=== PATIENT | male | born 1995 | race Caucasian/White ===

== ENCOUNTER 2020-07-18 14:13 | Emergency (ER) | payer SELFPAY ==
[~2020-07-18] VITALS: Ht 180.3 cm; Wt 61.3 kg
[~2020-07-18 14:13] MED LIST: CODE-54 PO; MUPI15CR TP; SULF1TAB35 PO
[2020-07-18] MEDS ORDERED: KETOROLAC 30 MG/ML VIAL IVP ONE (14:30)
[2020-07-18] MEDS ORDERED: NS IV 1000 ML 1,000 ML IV SCH (14:30)
--- NOTE | 2020-07-18 14:33 | ED EENT ---
History of Present Illness General Stated Complaint: SORE THROAT/JAW AREA Source: patient Exam Limitations: no limitations History of Present Illness Date Seen by Provider: July 18, 2020 Time Seen by Provider: 14:31 Initial Comments To ER by private vehicle with reports of left-sided jaw and throat swelling. This was first noticed on 07/14/2020. He saw [facility] this morning and received an injection of steroid and antibiotic. Since that injection he feels as though the swelling has progressed and he was advised to come to the emergency room to evaluate for abscess. He was also given a prescription at [facility] for Augmentin. Timing/Duration: abrupt Severity: moderate Associated Symptoms: denies symptoms Allergies and Home Medications Allergies Coded Allergies: No Known Drug Allergies (Unverified , 08/04/11) Home Medications Hydrocodone/Acetaminophen 118 Ml Solution, 10 ML PO Q4H PRN for PAIN-SEVERE (8- 10) Prescribed by: DOLLY BARRETO on 07/18/20 1534 Mupirocin Calcium 15 Gm Cream..g., 15 GM TP BID Prescribed by: ROSA STEWART on 08/24/17 232 Prednisone 20 Mg Tab, 40 MG PO DAILY Prescribed by: DOLLY BARRETO on 07/18/20 1537 Sulfamethoxazole/Trimethoprim 1 Each Tablet, 1 EACH PO BID Prescribed by: ROSA STEWART on 08/24/172319 Patient Home Medication List Home Medication List Reviewed: Yes Review of Systems Review of Systems Constitutional: see HPI; No chills, No fever Eyes: No Symptoms Reported Ears: No Symptoms Reported Nose: no symptoms reported Mouth: no symptoms reported Respiratory: no symptoms reported Cardiovascular: no symptoms reported Musculoskeletal: no symptoms reported Past Bcfnnkr-Lzlkuc-Xibzph Hx Patient Social History Type Used: Cigarettes 2nd Hand Smoke Exposure: Yes Past Medical History Surgeries: No Respiratory: No Cardiac: No Neurological: No Genitourinary: No Gastrointestinal: No Musculoskeletal: No Endocrine: No HEENT: No Cancer: No Psychosocial: No Integumentary: Yes (ACNE) Psoriasis Blood Disorders: No Physical Exam Vital Signs Vital Signs - First Documented 07/18/20 14:40 Temp 37.2 Pulse 82 Resp 18 B/P (MAP) 146/104 (118) Pulse Ox 98 Height, Weight, BMI Height: 5'11.00" Weight: 140lbs. oz. 63.699078xm; BMI Method:Stated General Appearance: WD/WN, no apparent distress Eyes: bilateral eye normal inspection, bilateral eye PERRL, bilateral eye EOMI Ears: bilateral ear auricle normal, bilateral ear canal normal, bilateral ear TM normal Mouth/Throat: other (There is left peritonsillar swelling including swelling of the left soft palate. There is erythema of the overlying skin. There is no uvular deviation to the right.) Neck: non-tender, full range of motion, lymphadenopathy (L) Cardiovascular: tachycardia Gastrointestinal: normal bowel sounds, non tender Neurologic/Psychiatric: alert, normal mood/affect, oriented x 3 Skin: normal color, warm/dry Progress/Results/Core Measures Results/Orders Lab Results Laboratory Tests Test 07/18/20 14:20 Range/Units White Blood Count 12.5 H 4.3-11.0 10^3/uL Red Blood Count 4.79 4.30-5.52 10^6/uL Hemoglobin 14.3 13.3-17.7 g/dL Hematocrit 41 40-54 % Mean Corpuscular Volume 86 80-99 fL Mean Corpuscular Hemoglobin 30 25-34 pg Mean Corpuscular Hemoglobin Concent 35 32-36 g/dL Red Cell Distribution Width 12.3 10.0-14.5 % Platelet Count 259 130-400 10^3/uL Mean Platelet Volume 10.1 9.0-12.2 fL Immature Granulocyte % (Auto) 0 % Neutrophils (%) (Auto) 70 42-75 % Lymphocytes (%) (Auto) 18 12-44 % Monocytes (%) (Auto) 11 0-12 % Eosinophils (%) (Auto) 1 0-10 % Basophils (%) (Auto) 0 0-10 % Neutrophils # (Auto) 8.7 H 1.8-7.8 10^3/uL Lymphocytes # (Auto) 2.3 1.0-4.0 10^3/uL Monocytes # (Auto) 1.4 H 0.0-1.0 10^3/uL Eosinophils # (Auto) 0.1 0.0-0.3 10^3/uL Basophils # (Auto) 0.0 0.0-0.1 10^3/uL Immature Granulocyte # (Auto) 0.0 0.0-0.1 10^3/uL C-Reactive Protein High Sensitivity 9.69 H 0.00-0.50 MG/DL My Orders Orders - DOLLY BARRETO BANDING MACHINE OPERATOR Ct Neck (Soft Tissue) W (07/18/20 14:30) Cbc With Automated Diff (07/18/20 14:30) Hs C Reactive Protein (07/18/20 14:30) Ed Iv/Invasive Line Start (07/18/20 14:30) Ketorolac Injection (Toradol Injection) (07/18/20 14:30) Ns Iv 1000 Ml (Sodium Chloride 0.9%) (07/18/20 14:30) Iohexol Injection (Omnipaque 350 Mg/Ml 1 (07/18/20 14:45) Received Contrast (Hold Metformin- Contr (07/18/20 14:45) Sodium Chloride Flush (Catheter Flush Sy (07/18/20 14:45) Ns (Ivpb) (Sodium Chloride 0.9% Ivpb Bag (07/18/20 14:45) Clindamycin 900 Mg/50 Ml Ivpb (Cleocin P (07/18/20 14:45) Lidocaine/Epi 2% 1:100,000 (Xylocaine/Ep (07/18/20 15:00) Lorazepam Injection (Ativan Injection) (07/18/20 15:00) Hydrocodone/Apap 5/325 Tablet (Lortab 5 (07/18/20 15:45) Medications Given in ED Current Medications Medications Dose Ordered Sig/Christiano Route Start Time Stop Time Status Last Admin Dose Admin Clindamycin Phosphate/Dextrose 50 ml @ 100 mls/hr ONCE ONCE IV 07/18/20 14:45 07/18/20 15:14 DC 07/18/20 15:04 100 MLS/HR Iohexol 75 ml ONCE ONCE IV 07/18/20 14:45 07/18/20 14:46 DC 07/18/20 14:52 75 ML Ketorolac Tromethamine 15 mg ONCE ONCE IVP 07/18/20 14:30 07/18/20 14:31 DC 07/18/20 14:39 15 MG Lidocaine/ Epinephrine 20 ml ONCE ONCE INJ 07/18/20 15:00 07/18/20 15:01 DC 07/18/20 15:34 20 ML Lorazepam 0.5 mg ONCE PRN IVP 07/18/20 15:00 07/18/20 14:57 0.5 MG Sodium Chloride 100 ml ONCE ONCE IV 07/18/20 14:45 07/18/20 14:46 DC 07/18/20 14:52 80 ML Vital Signs/I&O 07/18/20 14:40 Temp 37.2 Pulse 82 Resp 18 B/P (MAP) 146/104 (118) Pulse Ox 98 Departure Communication (Admissions) Did needle aspiration of peritonsillar abscess. On the left side the soft palate was anesthetized with 1 mL of 2% lidocaine with epinephrine. This was utilizing a 27-gauge needle. Then with him sitting upright an 18-gauge 1/2 inch needle was inserted to a depth of 1.5 cm where it was guarded with the needle. Needle was oriented parallel to the floor and posterolaterally. Aspirated 4 mL of purulent material. Minimal bleeding. NAME: CHRISTINA GARCIA MED REC#: [id number] PT STATUS: REG ER : 1995 PHYSICIAN: DOLLY BARRETO BANDING MACHINE OPERATOR ADMIT DATE: 07/18/20/ER Draft Date of Exam:07/18/20 CT NECK (SOFT TISSUE) W EXAMINATION: CT neck with intravenous contrast. TECHNIQUE: Multiple contiguous axial images were obtained through the neck after the uneventful administration of intravenous contrast. All CT scans use one or more of the following dose optimizing techniques: automated exposure control, MA and/or KvP adjustment based on patient size and exam type or iterative reconstruction. HISTORY: left peritonsillar abscess COMPARISON: None available. FINDINGS: There is a 1.7 x 1.2 cm fluid collection within the left peritonsillar soft tissues with significant surrounding edema. There is mass effect on the airway without significant narrowing. The parotid and submandibular glands are normal. There is significant streak artifact seen secondary to dental hardware. No pathologically enlarged lymph nodes are seen. Skull base is unremarkable. No suspicious osseous lesion or compression fracture. Visualized lung apices are unremarkable. IMPRESSION: 1. Left peritonsillar fluid collection measuring 1.7 x 1.2 cm with mild mass effect on the airway. Findings compatible with developing peritonsillar abscess. Dictated on workstation # [id number] Dict: 07/18/20 1451 Trans: 07/18/20 1457 [id number] Interpreted by: LANDY,YRN C DO Electronically signed by: Impression Primary Impression: Peritonsillar abscess Disposition: 01 HOME, SELF-CARE Condition: Stable Departure-Patient Inst. Decision time for Depature: 14:33 Referrals: ANGELINE LAKHANI MD NO,LOCAL PHYSICIAN (PCP) Primary Care Physician Patient Instructions: Peritonsillar Abscess, Adult Add. Discharge Instructions: 1. Continue pain medication antibiotic and steroids as directed. Sip on ice cold fluids. This will help with swelling and pain. Return to ER about this time tomorrow afternoon for recheck. Scripts Prednisone (Prednisone) 20 Mg Tab 40 MG PO DAILY, #6 TAB 0 Refills Prov: DOLLY BARRETO APRN 07/18/20 Hydrocodone/Acetaminophen (Hydrocodone-Acetamn 7.5-325/15) 118 Ml Solution 10 ML PO Q4H PRN for PAIN-SEVERE (8-10), #120 ML Prov: DOLLY BARRETO APRN 07/18/20 Work/School Note: Work Release Form Date Seen in the Emergency Department: July 18, 2020 Return to Work: July 21, 2020 DOLLY BARRETO APRN July 18, 2020 14:33
[2020-07-18 14:37] LABS: BASOPHILS % (AUTO) 0 % (0-10); EOSINOPHILS # (AUTO) 0.1 10^3/uL (0.0-0.3); EOSINOPHILS % (AUTO) 1 % (0-10); HEMATOCRIT 41 % (40-54); HEMOGLOBIN 14.3 g/dL (13.3-17.7); LYMPHOCYTES # (AUTO) 2.3 10^3/uL (1.0-4.0); LYMPHOCYTES % (AUTO) 18 % (12-44); MEAN CORPUSCULAR HEMOGLOBIN 30 pg (25-34); MEAN CORPUSCULAR HGB CONC 35 g/dL (32-36); MEAN CORPUSCULAR VOLUME 86 fL (80-99); MEAN PLATELET VOLUME 10.1 fL (9.0-12.2); MONOCYTES # (AUTO) 1.4 10^3/uL (0.0-1.0); MONOCYTES % (AUTO) 11 % (0-12); NEUTROPHILS # (AUTO) 8.7 10^3/uL (1.8-7.8); NEUTROPHILS % (AUTO) 70 % (42-75); PLATELET COUNT 259 10^3/uL (130-400); WHITE BLOOD COUNT 12.5 10^3/uL (4.3-11.0)
[2020-07-18] MEDS ORDERED: CLINDAMYCIN 900 MG/50 ML IVPB 50 ML IV ONE (14:45)
[2020-07-18] MEDS ORDERED: IOHEXOL 350 MG/ML 100 ML (OMNIPAQUE 350) VIAL IV ONE (14:45)
[2020-07-18] MEDS ORDERED: NS 100 ML (IVPB) BAG IV ONE (14:45)
[2020-07-18] MEDS ORDERED: HOLD METFORMIN - RECEIVED CONTRAST 20 ML VIAL IV SCH (14:45)
[2020-07-18] MEDS ORDERED: CATHETER FLUSH 10 ML SYR IV PRN (14:45)
--- NOTE | 2020-07-18 14:57 | Diagnostic Imaging Report ---
EXAMINATION: CT neck with intravenous contrast. TECHNIQUE: Multiple contiguous axial images were obtained through the neck after the uneventful administration of intravenous contrast. All CT scans use one or more of the following dose optimizing techniques: automated exposure control, MA and/or KvP adjustment based on patient size and exam type or iterative reconstruction. HISTORY: left peritonsillar abscess COMPARISON: None available. FINDINGS: There is a 1.7 x 1.2 cm fluid collection within the left peritonsillar soft tissues with significant surrounding edema. There is mass effect on the airway without significant narrowing. The parotid and submandibular glands are normal. There is significant streak artifact seen secondary to dental hardware. No pathologically enlarged lymph nodes are seen. Skull base is unremarkable. No suspicious osseous lesion or compression fracture. Visualized lung apices are unremarkable. IMPRESSION: 1. Left peritonsillar fluid collection measuring 1.7 x 1.2 cm with mild mass effect on the airway. Findings compatible with developing peritonsillar abscess. Dictated by: Dictated on workstation # [id number]
[2020-07-18] MEDS ORDERED: LIDOCAINE/EPI 2% 1:100,00 (XYLOCAINE) 20 ML VIAL INJ ONE (15:00)
[2020-07-18] MEDS ORDERED: LORazepam INJ 2 MG/ML (ATIVAN) VIAL IVP PRN (15:00)
[2020-07-18] MEDS ORDERED: HYDR118S10 PO (15:33)
[2020-07-18] MEDS ORDERED: PRD20T PO (15:37)
[2020-07-18] MEDS ORDERED: HYDROcodone/APAP 5 MG/325 MG (LORTAB) TAB PO ONE (15:45)
[2020-07-18 15:50] VITALS: BP 118/81
== END 2020-07-18 15:50 | disposition home or self-care (01) ==
LOC: EDUNIT# 14:13 → ER 14:15
DX: J36 Peritonsillar abscess (principal); R00.0 Tachycardia, unspecified; Z77.22 Contact with and (suspected) exposure to environmental tobacco smoke (acute) (chronic)
CPT/HCPCS: 36415; 70491; 85025; 86141; 87070; 87075; 87205

== ENCOUNTER 2020-07-19 15:36 | Emergency (ER) | payer SELFPAY ==
[~2020-07-19] VITALS: Ht 180 cm; Wt 61.0 kg
[~2020-07-19 15:36] MED LIST changes: +HYDR118S10 PO; +PRD20T PO
[2020-07-19 15:55] VITALS: BP 143/80
--- NOTE | 2020-07-19 16:15 | ED Suture Removal/Wound Check ---
Suture/Wound Re-check Suture Removal/Wound Recheck : Progress I drained a left-sided peritonsillar abscess yesterday via needle aspiration. 4 mL of purulent material was aspirated. He already had a prescription for Augm entin from [facility]. I added hydrocodone and prednisone. He reports that today he was able to eat a burger and he is feeling much better though still somewhat swollen. General Appearance: WD/WN, no apparent distress Skin Exam: normal color, warm/dry Physical Exam Vital Signs Vital Signs - First Documented 07/19/20 15:55 Temp 36.2 Pulse 72 Resp 16 B/P (MAP) 143/80 Pulse Ox 96 O2 Delivery Room Air Capillary Refill : General Appearance: WD/WN, no apparent distress HEENT: other (He still has some erythema of the left side of the peritonsillar tissues. Significantly reduced swelling. No uvular deviation.) Neck: non-tender, full range of motion, lymphadenopathy (L) Cardiovascular: regular rate, rhythm, no murmur Respiratory: normal breath sounds, no respiratory distress, no accessory muscle use Neurologic/Psychiatric: alert, normal mood/affect, oriented x 3 Skin: normal color, warm/dry Departure Impression Primary Impression: Peritonsillar abscess Disposition: 01 HOME, SELF-CARE Condition: Stable Departure-Patient Inst. Decision time for Depature: 16:14 Referrals: NO,LOCAL PHYSICIAN (PCP/Family) Primary Care Physician Patient Instructions: Sore Throat in Adults Add. Discharge Instructions: 1. Continue the pain medication steroid and antibiotics. Return to ER for any worsening. All discharge instructions reviewed with patient and/or family. Voiced understanding. DOLLY BARRETO AUTO TECH July 19, 2020 16:15
== END 2020-07-19 16:17 | disposition home or self-care (01) ==
LOC: EDUNIT# 15:36 → ER 15:38
DX: Z48.01 Encounter for change or removal of surgical wound dressing (principal)

== ENCOUNTER 2021-08-22 19:20 | Emergency (ER) | payer SELFPAY ==
[~2021-08-22] VITALS: Ht 180.3 cm; Wt 65.8 kg
[~2021-08-22 19:20] MED LIST changes: -SULF1TAB35 PO; +SULF1TAB38 PO
[2021-08-22] MEDS ORDERED: NS IV 1000 ML 1,000 ML IV STA (19:51)
[2021-08-22] MEDS ORDERED: KETOROLAC 30 MG/ML VIAL IVP ONE (20:00)
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
[2021-08-22] MEDS ORDERED: KETOROLAC 60 MG/2 ML VIAL IM ONE (20:30)
[2021-08-22] MEDS ORDERED: KETOROLAC 30 MG/ML VIAL IM ONE (20:30)
--- NOTE | 2021-08-22 21:07 | Diagnostic Imaging Report ---
INDICATION: Shoulder pain. EXAMINATION: Right shoulder, 08/22/2021. COMPARISON: 12/18/2011. FINDINGS: There is no fracture or dislocation. The joint spaces are preserved. Soft tissues are unremarkable. A calcified granuloma in the right upper chest is stable from previous imaging. IMPRESSION: Chronic findings with no acute osseous abnormality. Dictated by: Dictated on workstation # [id number]
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
[2021-08-22] MEDS ORDERED: NAPR-915 PO (21:26)
[2021-08-22 21:29] VITALS: BP 119/78
== END 2021-08-22 21:39 | disposition home or self-care (01) ==
LOC: EDUNIT# 19:20 → ER 19:22
DX: S01.81XA Laceration without foreign body of other part of head, initial encounter (principal); S80.812A Abrasion, left lower leg, initial encounter; S30.810A Abrasion of lower back and pelvis, initial encounter; M25.511 Pain in right shoulder; M54.2 Cervicalgia; L40.9 Psoriasis, unspecified; F17.210 Nicotine dependence, cigarettes, uncomplicated; V49.40XA Driver injured in collision with unspecified motor vehicles in traffic accident, initial encounter; Y92.410 Unspecified street and highway as the place of occurrence of the external cause
CPT/HCPCS: 70450; 72125; 73030

== ENCOUNTER 2021-11-04 17:38 | Emergency (ER) | payer SELFPAY ==
[~2021-11-04] VITALS: Ht 180.3 cm; Wt 61.2 kg
[~2021-11-04 17:38] MED LIST changes: +NAPR-915 PO
[2021-11-04 18:41] LABS: BILIRUBIN,URINE NEGATIVE (NEGATIVE); CLARITY,URINE SL CLOUDY; COLOR,URINE YELLOW; GLUCOSE, URINE (UA) NEGATIVE (NEGATIVE); KETONES,URINE NEGATIVE (NEGATIVE); LEUKOCYTE ESTERASE ,URINE NEGATIVE (NEGATIVE); NITRITE,URINE NEGATIVE (NEGATIVE); PH,URINE 6.5 (5-9); PROTEIN,URINE NEGATIVE (NEGATIVE)
[2021-11-04 18:53] LABS: BACTERIA,URINE NEGATIVE /HPF; RBC,URINE 25-50 /HPF
--- NOTE | 2021-11-04 20:01 | ED Abdominal Pain ---
General Chief Complaint: Abdominal/GI Problems Stated Complaint: ABDOMINAL PAIN Nursing Triage Note: PT TO [facility] 5 WITH CC OF LOWER ABD AND BACK PAIN FOR A COUPLE OF MONTHS. PT REPORTS PAIN INCREASES WITH MOVING AND STATES HAS LOST 10-15LBS IN LAST MONTH. PT REPORTS NAUSEA. DENIES FEVER AND VOMITING. Source of Information: Patient Exam Limitations: No Limitations History of Present Illness Date Seen by Provider: Nov 04, 2021 Time Seen by Provider: 20:01 Allergies and Home Medications Allergies Coded Allergies: No Known Drug Allergies (Unverified , 08/04/11) Patient Home Medication List Hydrocodone/Acetaminophen (Hydrocodone-Acetamn 7.5-325/15) 118 Ml Solution, 10 ML PO Q4H PRN for PAIN-SEVERE (8-10) Prescribed by: DOLLY BARRETO on 07/18/20 153 Mupirocin Calcium (Bactroban) 15 Gm Cream..g., 15 GM TP BID Prescribed by: ROSA STEWART on 08/24/17 232 Naproxen (Naproxen) 500 Mg Tablet, 500 MG PO Q12H Prescribed by: CHARLOTTE GOMEZ on 08/22/212125 Prednisone (Prednisone) 20 Mg Tab, 40 MG PO DAILY Prescribed by: DOLLY BARRETO on 07/18/20 153 Sulfamethoxazole/Trimethoprim (Bactrim Ds Tablet) 1 Each Tablet, 1 EACH PO BID Prescribed by: ROSA STEWART on 08/24/17 232 Past Fuihmlj-Bdwakf-Xwxysh Hx Patient Social History Tobacco Use?: Yes Tobacco type used: Cigarettes Smoking Status: Current Everyday Smoker Substance use?: Yes Substance type: Marijuana Alcohol Use?: No Pt feels they are or have been: No Past Medical History Surgeries: No Respiratory: No Cardiac: No Neurological: No Genitourinary: No Gastrointestinal: No Musculoskeletal: No Endocrine: No HEENT: No Cancer: No Psychosocial: No Integumentary: Yes (ACNE) Psoriasis Blood Disorders: No Physical Exam Vital Signs Vital Signs - First Documented 11/04/21 18:21 Temp 37.2 Pulse 70 Resp 16 B/P (MAP) 151/92 (111) Pulse Ox 96 O2 Delivery Room Air Capillary Refill : Less Than 3 Seconds Height/Weight/BMI Height: 5'11.00" Weight: 140lbs. oz. [id number]; 18.00 BMI Method:Estimated Progress/Results/Core Measures Results/Orders Lab Results Laboratory Tests Test 11/04/21 18:30 11/04/21 20:11 Range/Units Urine Color YELLOW Urine Clarity SL CLOUDY Urine pH 6.5 5-9 Urine Specific [place] 1.025 H 1.016-1.022 Urine Protein NEGATIVE NEGATIVE Urine Glucose (UA) NEGATIVE NEGATIVE Urine Ketones NEGATIVE NEGATIVE Urine Nitrite NEGATIVE NEGATIVE Urine Bilirubin NEGATIVE NEGATIVE Urine Urobilinogen 0.2 < = 1.0 MG/DL Urine Leukocyte Esterase NEGATIVE NEGATIVE Urine RBC (Auto) 2+ H NEGATIVE Urine RBC 25-50 H /HPF Urine WBC NONE /HPF Urine Squamous Epithelial Cells NONE /HPF Urine Crystals NONE /LPF Urine Bacteria NEGATIVE /HPF Urine Casts NONE /LPF Urine Mucus NEGATIVE /LPF Urine Culture Indicated NO White Blood Count 10.6 4.3-11.0 10^3/uL Red Blood Count 4.65 4.30-5.52 10^6/uL Hemoglobin 14.3 13.3-17.7 g/dL Hematocrit 40 40-54 % Mean Corpuscular Volume 85 80-99 fL Mean Corpuscular Hemoglobin 31 25-34 pg Mean Corpuscular Hemoglobin Concent 36 32-36 g/dL Red Cell Distribution Width 12.5 10.0-14.5 % Platelet Count 309 130-400 10^3/uL Mean Platelet Volume 10.2 9.0-12.2 fL Immature Granulocyte % (Auto) 0 % Neutrophils (%) (Auto) 58 42-75 % Lymphocytes (%) (Auto) 31 12-44 % Monocytes (%) (Auto) 9 0-12 % Eosinophils (%) (Auto) 2 0-10 % Basophils (%) (Auto) 1 0-10 % Neutrophils # (Auto) 6.1 1.8-7.8 10^3/uL Lymphocytes # (Auto) 3.3 1.0-4.0 10^3/uL Monocytes # (Auto) 0.9 0.0-1.0 10^3/uL Eosinophils # (Auto) 0.2 0.0-0.3 10^3/uL Basophils # (Auto) 0.1 0.0-0.1 10^3/uL Immature Granulocyte # (Auto) 0.0 0.0-0.1 10^3/uL Erythrocyte Sedimentation Rate 2 0-15 MM/HR Sodium Level 141 135-145 MMOL/L Potassium Level 3.6 3.6-5.0 MMOL/L Chloride Level 106 98-107 MMOL/L Carbon Dioxide Level 24 21-32 MMOL/L Anion Gap 11 5-14 MMOL/L Blood Urea Nitrogen 15 7-18 MG/DL Creatinine 0.85 0.60-1.30 MG/DL Estimat Glomerular Filtration Rate 124 BUN/Creatinine Ratio 18 Glucose Level 80 70-105 MG/DL Calcium Level 9.5 8.5-10.1 MG/DL Corrected Calcium 9.1 8.5-10.1 MG/DL Total Bilirubin 0.4 0.1-1.0 MG/DL Aspartate Amino Transf (AST/SGOT) 17 5-34 U/L Alanine Aminotransferase (ALT/SGPT) 11 0-55 U/L Alkaline Phosphatase 47 40-136 U/L C-Reactive Protein High Sensitivity 0.02 0.00-0.50 MG/DL Total Protein 7.1 6.4-8.2 GM/DL Albumin 4.5 3.2-4.5 GM/DL My Orders Orders - ADARSH REEVES [employer]SEM[employer]ER Cbc With Automated Diff (11/04/21 19:52) Comprehensive Metabolic Panel (11/04/21 19:52) Hs C Reactive Protein (11/04/21 19:52) Ct Abdomen/Pelvis W (11/04/21 19:52) Iohexol Injection (Omnipaque 350 Mg/Ml 1 (11/04/21 20:30) Received Contrast (Hold Metformin- Contr (11/04/21 20:30) Ns (Ivpb) (Sodium Chloride 0.9% Ivpb Bag (11/04/21 20:30) Erythrocyte Sedimentation Rate (11/04/21 21:31) Medications Given in ED Current Medications Medications Dose Ordered Sig/Christiano Route Start Time Stop Time Status Last Admin Dose Admin Iohexol 100 ml ONCE ONCE IV 11/04/21 20:30 11/04/21 20:31 DC 11/04/21 20:25 80 ML Sodium Chloride 100 ml ONCE ONCE IV 11/04/21 20:30 11/04/21 20:31 DC 11/04/21 20:25 80 ML Vital Signs/I&O 11/04/21 18:21 Temp 37.2 Pulse 70 Resp 16 B/P (MAP) 151/92 (111) Pulse Ox 96 O2 Delivery Room Air Blood Pressure Mean: 111 Departure Impression Primary Impression: Abdominal pain Disposition: 01 HOME, SELF-CARE Condition: Improved Departure-Patient Inst. Decision time for Depature: 23:07 Referrals: NO,LOCAL PHYSICIAN (PCP) Primary Care Physician Patient Instructions: Abdominal Pain, Adult ED, LOCAL PHYSICIAN LIST Add. Discharge Instructions: Plan: 1. Establish with primary care provider of choice. You have been provided a list of local providers. 2. May take Hydrocodone every 6 hours as needed for severe pain. 3. Return for any new, concerning, or worsening symptoms. All discharge instructions reviewed with patient and/or family. Voiced understanding. ADARSH REEVES [employer]SEM[employer]ER Nov 04, 2021 20:01
[2021-11-04 20:18] LABS: BASOPHILS # (AUTO) 0.1 10^3/uL (0.0-0.1); BASOPHILS % (AUTO) 1 % (0-10); EOSINOPHILS # (AUTO) 0.2 10^3/uL (0.0-0.3); EOSINOPHILS % (AUTO) 2 % (0-10); HEMATOCRIT 40 % (40-54); HEMOGLOBIN 14.3 g/dL (13.3-17.7); LYMPHOCYTES # (AUTO) 3.3 10^3/uL (1.0-4.0); LYMPHOCYTES % (AUTO) 31 % (12-44); MEAN CORPUSCULAR HEMOGLOBIN 31 pg (25-34); MEAN CORPUSCULAR HGB CONC 36 g/dL (32-36); MEAN CORPUSCULAR VOLUME 85 fL (80-99); MEAN PLATELET VOLUME 10.2 fL (9.0-12.2); MONOCYTES # (AUTO) 0.9 10^3/uL (0.0-1.0); MONOCYTES % (AUTO) 9 % (0-12); NEUTROPHILS # (AUTO) 6.1 10^3/uL (1.8-7.8); NEUTROPHILS % (AUTO) 58 % (42-75); PLATELET COUNT 309 10^3/uL (130-400); WHITE BLOOD COUNT 10.6 10^3/uL (4.3-11.0)
[2021-11-04] MEDS ORDERED: HOLD METFORMIN - RECEIVED CONTRAST 20 ML VIAL IV SCH (20:30)
[2021-11-04] MEDS ORDERED: NS 100 ML (IVPB) BAG IV ONE (20:30)
[2021-11-04] MEDS ORDERED: IOHEXOL 350 MG/ML 100 ML (OMNIPAQUE 350) VIAL IV ONE (20:30)
[2021-11-04 20:32] LABS: ALBUMIN 4.5 GM/DL (3.2-4.5); POTASSIUM 3.6 MMOL/L (3.6-5.0)
[2021-11-04 20:33] LABS: CALCIUM 9.5 MG/DL (8.5-10.1)
[2021-11-04 20:35] LABS: TOTAL PROTEIN 7.1 GM/DL (6.4-8.2)
[2021-11-04 20:36] LABS: BILIRUBIN,TOTAL 0.4 MG/DL (0.1-1.0)
[2021-11-04 20:38] LABS: CREATININE SERUM 0.85 MG/DL (0.60-1.30)
--- NOTE | 2021-11-04 21:18 | Diagnostic Imaging Report ---
CLINICAL INDICATION: Patient with lower abdominal and back pain for a couple of months. EXAM: Axial CT scan of the abdomen and pelvis performed with 80 mL of Omnipaque 350 IV contrast. Sagittal and coronal reformatted images are created. Auto Exposure Controls were utilized during the CT exam to meet ALARA standards for radiation dose reduction. COMPARISON: None. FINDINGS: Visualized lung bases are clear. Bones show no significant abnormality. The liver, spleen, pancreas, gallbladder, and adrenal glands are unremarkable. There is a 6 mm cyst involving the upper aspect of the left kidney. Otherwise, both kidneys are unremarkable with no hydronephrosis or stone. Bladder is fluid-filled and unremarkable. Prostate gland is unremarkable. There is no intra-abdominal free air or free fluid. There is no intestinal obstruction. There are multiple loops of bowel thickening involving the region of the jejunum and intestines on left side of abdomen and also involving the duodenum which is nonspecific. There is no lymphadenopathy. The extra-abdominal and extrapelvic soft tissue structures are unremarkable. IMPRESSION: 1: There are multiple loops of bowel wall thickening involving jejunum and duodenal regions which may represent enteritis. 2: Otherwise, there is no CT evidence of acute abdominal or pelvic process. Dictated by: Dictated on workstation # [id number]
[2021-11-04 23:27] VITALS: BP 121/94
[2021-11-04] MEDS ORDERED: fentaNYL INJ 100 MCG/2 ML AMP IVP ONE (23:30)
== END 2021-11-04 23:37 | disposition home or self-care (01) ==
LOC: EDUNIT# 17:38 → ER 17:39
DX: R10.30 Lower abdominal pain, unspecified (principal); F17.210 Nicotine dependence, cigarettes, uncomplicated; Z28.310 Unvaccinated for COVID-19
CPT/HCPCS: 36415; 74177; 80053; 81000; 85025; 85652; 86141